=== PATIENT | female | born 1985 | race American Indian/Alaskan Native ===

== ENCOUNTER 2017-06-15 01:28 | Emergency (ER) | payer MEDICAID ==
[2017-06-15 02:41] VITALS: BP 122/84
[2017-06-15 03:57] LABS: Basophils % (Auto) 0.6 % (0.0-1.8); Eosinophils # (Auto) 0.4 K/mm3 (0.0-0.4); Hemoglobin 12.1 gm/dl (10.1-14.3); Lymphocytes # (Auto) 2.5 K/mm3 (1.2-5.4); Lymphocytes % (Auto) 30.7 % (13.4-35.0); Mean Corpuscular HGB Conc 34 % (30-34); Mean Corpuscular Hemoglobin 28 pg (28-32); Mean Corpuscular Volume 84 fl (79-97); Monocytes # (Auto) 0.6 K/mm3 (0.0-0.8); Monocytes % (Auto) 7.6 % (0.0-7.3); Platelet Count 204 K/mm3 (140-440); Red Blood Count 4.29 M/mm3 (3.65-5.03); Red Cell Distribution Width 13.7 % (13.2-15.2)
[2017-06-15] MEDS ORDERED: TYLENOL PO ONE (04:00)
[2017-06-15] MEDS ORDERED: TYLENOL ONE (04:02)
[2017-06-15 06:13] LABS: Bilirubin,Urine NEG (Negative); Blood,Urine NEG (Negative); Color,Urine Yellow (Yellow); Mucus,Urine FEW /HPF; Protein,Urine <15 mg/dL mg/dL (Negative); Urobilinogen,Urine < 2.0 mg/dL (<2.0)
--- NOTE | 2017-06-15 06:50 | Emergency Department Report ---
Chief Complaint: Rectal Pain Stated Complaint: HEMORROID PAIN Time Seen by Provider: 06/15/17 06:46 - HPI History of Present Illness: 31-year-old female with a history of memory presents to ED complaining of rectal pain has been ongoing for 3-4 days. Patient states pain is worsened than ever before. Patient states blood in her stool when she wipes. Patient also complaining of vaginal discharge, malodorous with dysuria and states I think have a tract infection as well as vaginal infection. She denies fevers/ chills nausea vomiting abdominal pain. - ROS Review of Systems: As noted in HPI - Exam Vital Signs: Vital Signs 06/15/17 02:37 Temperature 98.2 F Pulse Rate 72 Respiratory 18 Rate Blood Pressure 122/84 O2 Sat by Pulse 99 Oximetry Physical Exam: ReCtum: External, hemorrhoids visualized, nonthrombosed, nonbleeding, tender to palpation. MSE screening note: Focused history and physical exam performed. Due to findings the following was ordered: ED Medical Decision Making - Lab Data Result diagrams: 06/15/17 03:24 - Medical Decision Making CBC, serum test, urinalysis and BNP ordered. Patient will be placed in another room to be addressed for vaginal discharge Suppositories ordered for rectal pain. Beta quantitative mildly elevated; this is due to patient having an elective 2 weeks ago. ED Disposition for MSE Condition: Stable Referrals: PRIMARY CARE, [Primary Care Provider] - 3-5 Days
== END 2017-06-15 07:10 | disposition left against medical advice (07) ==
LOC: ED 01:28
DX: K62.89 Other specified diseases of anus and rectum (principal); N89.8 Other specified noninflammatory disorders of vagina; K92.1 Melena
CPT/HCPCS: 36415; 81001; 84702; 85025; 86850; 86900; 86901; 99281